=== PATIENT | female | born 1990 | race American Indian/Alaskan Native ===

== ENCOUNTER 2019-01-10 19:07 | Emergency (ER) | payer OTHER ==
[2019-01-10 19:13] VITALS: BP 106/89
[2019-01-10 20:07] LABS: Basophils % (Auto) 0.5 % (0.0-1.8); Eosinophils # (Auto) 0.1 K/mm3 (0.0-0.4); Eosinophils % (Auto) 0.8 % (0.0-4.3); Hematocrit 37.2 % (30.3-42.9); Hemoglobin 12.5 gm/dl (10.1-14.3); Lymphocytes # (Auto) 2.5 K/mm3 (1.2-5.4); Lymphocytes % (Auto) 24.2 % (13.4-35.0); Mean Corpuscular HGB Conc 34 % (30-34); Mean Corpuscular Volume 93 fl (79-97); Monocytes # (Auto) 0.5 K/mm3 (0.0-0.8); Platelet Count 271 K/mm3 (140-440); Red Blood Count 4.02 M/mm3 (3.65-5.03); Red Cell Distribution Width 13.1 % (13.2-15.2)
--- NOTE | 2019-01-10 20:57 | Emergency Department Report ---
ED Female HPI - General Chief complaint: Abdominal Pain Stated complaint: /VAGINAL BLEEDING Time Seen by Provider: 01/10/19 20:41 Source: patient Mode of arrival: Ambulatory Limitations: No Limitations - History of Present Illness Initial comments: Patient is 28 years old female reviewed a 4 para 3. She presented to the ER complaining of lower abdominal pain associated with vaginal bleeding since yesterday. Patient stated that she had a positive home test a few days ago. Patient denied any dizziness, chest pain, shortness of breath, nausea or vomiting. No fever or chills. MD Complaint: vaginal bleeding, pelvic pain - Related Data Allergies Allergy/AdvReac Type Severity Reaction Status Date / Time No Known Allergies Allergy Verified 01/10/19 19:43 ED Review of Systems ROS: Stated complaint: /VAGINAL BLEEDING Other details as noted in HPI Comment: All other systems reviewed and negative Constitutional: denies: chills, fever Respiratory: denies: cough, shortness of breath, SOB with exertion Cardiovascular: denies: chest pain, palpitations Gastrointestinal: abdominal pain. denies: nausea, vomiting, diarrhea, constipation, hematemesis, melena, hematochezia Musculoskeletal: denies: back pain Neurological: denies: headache, weakness, numbness, paresthesias, confusion, abnormal gait ED Past Medical Hx - Past Medical History Previous Medical History?: No - Surgical History Past Surgical History?: No - Social History Smoking Status: Never Smoker Substance Use Type: None ED Physical Exam - General Limitations: No Limitations General appearance: alert, in no apparent distress - Head Head exam: Present: atraumatic, normocephalic, normal inspection - Eye Eye exam: Present: normal appearance - ENT ENT exam: Present: normal exam, normal orophraynx, mucous membranes moist - Neck Neck exam: Present: normal inspection, full ROM. Absent: tenderness, meningismus, lymphadenopathy, thyromegaly - Respiratory Respiratory exam: Present: normal lung sounds bilaterally - Cardiovascular Cardiovascular Exam: Present: regular rate, normal rhythm, normal heart sounds - GI/Abdominal GI/Abdominal exam: Present: soft, normal bowel sounds. Absent: distended, tenderness, guarding, rebound, rigid, organomegaly, mass, bruit, pulsatile mass, hernia - Extremities Exam Extremities exam: Present: normal inspection, full ROM, normal capillary refill - Back Exam Back exam: Present: normal inspection, full ROM. Absent: tenderness, CVA tenderness (R), CVA tenderness (L), muscle spasm, paraspinal tenderness, vertebral tenderness - Neurological Exam Neurological exam: Present: alert, oriented X3, CN II-XII intact, normal gait, reflexes normal - Skin Skin exam: Present: warm, intact, normal color ED Course Vital Signs 01/10/19 01/10/19 19:11 19:44 Temperature 99.1 F 99.1 F Pulse Rate 105 H 114 H Respiratory 18 16 Rate Blood Pressure 106/89 Blood Pressure 106/89 [Left] O2 Sat by Pulse 99 99 Oximetry ED Medical Decision Making - Lab Data Result diagrams: 01/10/19 19:48 Critical care attestation.: If time is entered above; I have spent that time in minutes in the direct care of this critically ill patient, excluding procedure time. ED Disposition Clinical Impression: Bleeding in early Disposition: DC-01 TO HOME OR SELFCARE Is pt being admited?: No Condition: Stable Instructions: Abdominal Pain in (ED) Additional Instructions: Beta hCG today is 251.
[2019-01-10 21:09] LABS: Bilirubin,Urine NEG (Negative); Blood,Urine NEG (Negative); Color,Urine Yellow (Yellow); Mucus,Urine FEW /HPF; Protein,Urine <15 mg/dL mg/dL (Negative); Urobilinogen,Urine < 2.0 mg/dL (<2.0)
== END 2019-01-10 23:38 | disposition home or self-care (01) ==
LOC: ED 19:07
DX: O20.8 Other hemorrhage in early pregnancy (principal); Z3A.00 Weeks of gestation of pregnancy not specified
CPT/HCPCS: 36415; 81001; 84702; 84703; 85025; 86900; 86901; 99283